=== PATIENT | female | born 1960 | race Caucasian/White ===

== ENCOUNTER → 2021-01-11 08:27 | Outpatient (BNVA) | payer OTHER, SELFPAY | PROVIDERS: PCP Nurse Practitioner Family; Visit Provider Physician Assistant ==

== ENCOUNTER 2021-03-16 09:57 | Day surgery (SDC) | payer OTHER, SELFPAY ==
[2021-03-10 12:17] VITALS: BMI 56.1
--- NOTE | 2021-03-15 12:11 | HO.ANESPROP2 ---
Documented by User: Renetta Peña NP 03/15/21 13:10 HPI - Anesthesia Eval Consult details Narrative: 60yo F for Colonoscopy PMFSH Active Problems Active Problems: All Active Problems (Updated 01/11/21 @ 09:02 by Nadya Wilde PA-C) Encounter for screening colonoscopy (Acute) Past Medical History Medical History Anemia Anxiety Depression Diet-controlled diabetes mellitus HTN (hypertension) Hypothyroid Lipoma LEA (obstructive sleep apnea) Surgical History Surgical History Hx of section Hx of cholecystectomy Hx of eye surgery Social History Social History Household Members Other:: lives with - 6 adult children- all on own Alcohol intake: current Patient Tobacco Use Status: Never used Tobacco Use of substances other than those prescribed or required for medical reasons: No Have you been hit, kicked, punched, or otherwise hurt by someone within the past year? If so, by whom?: No Advance Directives: No Advance Directives Information Provided: Yes Current occupational status: employed Current occupation: IT Meds Allergies Allergy/AdvReac Type Severity Reaction Status Date / Time NKA Allergy Mild none Uncoded 01/11/21 08:34 Home Medications Medication Instructions Recorded Confirmed Last Taken Type bupropion HCl 150 mg 24 hr tablet, 150 mg PO QAM 01/11/21 01/11/21 Unknown History extended release hydrochlorothiazide 12.5 mg tablet 12.5 mg PO DAILY 01/11/21 01/11/21 Unknown History levothyroxine 75 mcg tablet 75 mcg PO DAILY 01/11/21 01/11/21 Unknown History losartan 50 mg tablet 50 mg PO DAILY 01/11/21 01/11/21 Unknown History sertraline 100 mg tablet 100 mg PO DAILY 01/11/21 01/11/21 Unknown History Exam Exam Date and Time: March 15, 2021 1211 Height,Weight and Vital Signs: Height 5 ft 2 in Weight 139.253 kg Assessment and Plan Assessment Anesthesia Assessment: Chart Reviewed Documented by User: Jalyn Frye MD 03/16/21 10:57 PMFSH Past Medical History Medical History Anemia Anxiety Depression Diet-controlled diabetes mellitus HTN (hypertension) Hypothyroid Lipoma LEA (obstructive sleep apnea) Surgical History Surgical History Hx of section Hx of cholecystectomy Hx of eye surgery History of Problems with Anesthesia: No Social History Social History Household Members Other:: lives with - 6 adult children- all on own Alcohol intake: current Patient Tobacco Use Status: Never used Tobacco Use of substances other than those prescribed or required for medical reasons: No Have you been hit, kicked, punched, or otherwise hurt by someone within the past year? If so, by whom?: No Advance Directives: No Advance Directives Information Provided: Yes Current occupational status: employed Current occupation: IT Meds Allergies Allergy/AdvReac Type Severity Reaction Status Date / Time NKA Allergy Mild none Uncoded 01/11/21 08:34 Home Medications Medication Instructions Recorded Confirmed Last Taken Type bupropion HCl 150 mg 24 hr tablet, 150 mg PO QAM 01/11/21 01/11/21 Unknown History extended release hydrochlorothiazide 12.5 mg tablet 12.5 mg PO DAILY 01/11/21 01/11/21 Unknown History levothyroxine 75 mcg tablet 75 mcg PO DAILY 01/11/21 01/11/21 Unknown History losartan 50 mg tablet 50 mg PO DAILY 01/11/21 01/11/21 Unknown History sertraline 100 mg tablet 100 mg PO DAILY 01/11/21 01/11/21 Unknown History Exam Airway Mallampati Class: III (Full neck) TM Dist: >3cm Neck ROM: Full Loose/Missing/Broken Teeth: No Heart: RRR Lungs: CTA Assessment and Plan Assessment Anesthesia Assessment: Anesthesia Plan Discussed Final Anesthetic Review History of Problems with Anesthesia: No NPO: Yes ASA Class: III Final Preanesthetic Review: Meds/Allgs Chart Reviewed, Consent Obtained/Reviewed and Anes Risks/Benef Reviewed Patient Risk: Intermediate Procedure Risk: Low Anesthetic Plan Anesthetic Plan: MAC: Disposition: Standard PACU
[2021-03-16 10:05] VITALS: PULSE 92; RESP 18; TEMP 36.3; O2SAT 98; BMI 56.1
[2021-03-16] MEDS: Lactated Ringers 1,000 ML 100 ML IVCONT (10:32)
--- NOTE | 2021-03-16 10:34 | MHC.SHP ---
Pre-Procedural Eval Section A Date of Service: 03/16/21 Section B Chief Complaint: Screening Relevant Family History (Specify if Yes): No Relevant Social History: None Present Medications: see Short Stay Collaborative assessment Medical History: Significant History (Anemia Anxiety Depression Diet-controlled diabetes mellitus HTN (hypertension) Hypothyroid Lipoma LEA (obstructive sleep apnea)) History of Previous Operations: Relevant previous surgery/procedure and date(s) (Hx of section Hx of cholecystectomy Hx of eye surgery) Allergies: Allergies Allergy/AdvReac Type Severity Reaction Status Date / Time NKA Allergy Mild none Uncoded 01/11/21 08:34 Review of Systems Sugical H&P ROS: Negative: Constitution, Cardiovascular, Respiratory, Neurological, Psychiatric, Hem-Onc, Allergic/Immunologic, Gastrointestinal, Genitourinary, Musculoskeletal, Integumentary, Endocrine and Eyes/Ears/Nose/Throat Exam Surgical H&P Exam: Normal: HEENT, Normal: Heart, Normal: Lungs, Normal: Extremities, Normal: Abdomen, Normal: Skin and Normal: Neurological Plan Diagnosis/Plan: Unchanged I have reviewed the history and physical and performed a pertinent physical examination on my patient. No changes have occurred unless specified.
--- NOTE | 2021-03-16 11:16 | P.BOP_ITS ---
Brief Operative Note Date of Service: 03/16/21 Pre-op diagnosis: colon screening Post-op diagnosis: same Procedure: see op note Surgeon: Onesimo Houston MD Anesthesia: MAC Was an [employer] Specialist used for this Procedure?: No Estimated blood loss (mL): 0 Condition: stable Disposition: PACU
--- NOTE | 2021-03-16 11:16 | W.PM.OPN ---
Operative Note Operative Note Date of Service: 03/16/21 Narrative: Operative Information Procedure Description: Colonoscopy COLONOSCOPY Instrument: Olympus variable stiffness adult scope 190L Colonoscopy Monitoring: Vital signs and clinical assessment, continuous EKG monitoring, Pulse oximetry, Carbon Dioxide monitoring and blood pressure monitoring were done throughout the procedure. Colon withdrawal time was 8 minutes. Procedure: The patient was placed in the left lateral decubitis position and pre-procedure medications were administered. After a digital rectal examination of the ano-rectum, the video colonoscope was inserted into the rectum and advanced through the colon to the cecum/TI. The colonoscope was slowly withdrawn in a retrograde panoramic fashion and the colon mucosa was carefully examined including a retroflexed view of the rectum. Findings and interventions are described below. Procedure Difficulty: moderate Findings: Terminal Ileum-normal Cecum:normal Ascending Colon: normal Transverse Colon -normal Descending Colon:normal Sigmoid Colon: normal Rectum: Retroflexion with small internal hemorrhoids, grade I Anorectum - normal Colon preparation: [place] Bowel Preparation Scale Right colon; 2 Transverse colon: 2 Left colon; 2 (0 = Unprepared colon segment with mucosa not seen due to solid stool that cannot be cleared. 1 = Portion of mucosa of the colon segment seen, but other areas of the colon segment not well seen due to staining, residual stool and/or opaque liquid. 2 = Minor amount of residual staining, small fragments of stool and/or opaque liquid, but mucosa of colon segment seen well. 3 = Entire mucosa of colon segment seen well with no residual staining, small fragments of stool or opaque liquid) Impression and Post Procedure Diagnosis: internal hemorrhoids Plan: High fiber diet leaflet Avoid straining at stool, epsom salts and sitz bath, anusol supps or cream Repeat Colonoscopy in 10 years or earlier if clinically indicated Above findings were reviewed with the patient and relevant handouts were provided if indicated.
[2021-03-16 11:53] VITALS: BP 107/55; PULSE 89; RESP 20; TEMP 36.3; O2SAT 94
--- NOTE | 2021-03-16 11:56 | PC.NURSE ---
MD OZUNA BY BEDSIDE.
--- NOTE | 2021-03-16 12:03 | PC.NURSE ---
DRANK 120ML OF CRANBERRY JUICE.
--- NOTE | 2021-03-16 12:04 | PC.NURSE ---
400ML GIVEN IN INTRAOPERATIVE.
[2021-03-16 12:07] VITALS: BP 105/63; PULSE 81; RESP 18; TEMP 36.2; O2SAT 97
--- NOTE | 2021-03-16 12:53 | PC.NURSE ---
RECALLED FLOOR TO GIVE NURSE TO NURSE.
== END 2021-03-16 12:35 | disposition home or self-care (01) ==
PROVIDERS: PCP Nurse Practitioner Family; Visit Provider Internal Medicine Gastroenterology
PROC: 0DJD8ZZ Inspection of Lower Intestinal Tract, Via Natural or Artificial Opening Endoscopic (ICD-10-PCS; CPT 45378; principal; 2021-03-16 11:10)
DX: Z12.11 Encounter for screening for malignant neoplasm of colon (principal); K64.0 First degree hemorrhoids; I10 Essential (primary) hypertension; E11.9 Type 2 diabetes mellitus without complications; D64.9 Anemia, unspecified; F32.9 Major depressive disorder, single episode, unspecified; G47.33 Obstructive sleep apnea (adult) (pediatric); Z79.899 Other long term (current) drug therapy; Z90.49 Acquired absence of other specified parts of digestive tract
CPT/HCPCS: 45378; J2405; J2765

== ENCOUNTER → 2021-06-14 07:20 | Outpatient (BNVA) | payer OTHER, SELFPAY | PROVIDERS: PCP Nurse Practitioner Family; Visit Provider Physician Assistant ==